=== PATIENT | female | born 1995 | race Caucasian/White ===

== ENCOUNTER 2017-05-22 19:07 | Observation (INO) | payer OTHER ==
[~2017-05-22] VITALS: Ht 170.2 cm; Wt 114.3 kg
[~2017-05-22 19:07] MED LIST: ANUSOL-HC21 GM PR; ATARAX10 MG PO; EPIPEN ADU0.3 MG/0.3 IM; LIBRAX, CLI1 CAPSULE PO; MIRALAX17 GM PO; NORCO 5/3251 TABLET PO; TRAMADOL HCL50 MG PO; TRI-SPRINTEC1 EACH PO; TUCKS1 EAC1 TP
[2017-05-22 20:28] LABS: HEMATOCRIT 38.1 % (36.0-46.0); HEMOGLOBIN 12.9 G/DL (11.9-15.5); MCH 29.6 PG (29.0-34.0); MCHC 33.9 G/DL (30.0-36.0); MCV 87.4 FL (83-99); PLATELET COUNT 233 K/uL (156-360); RBC DIS.WIDTH-SD 38.9 % (39-53); RED BLOOD COUNT 4.36 M/uL (3.80-5.20); WHITE BLOOD COUNT 11.1 K/uL (4.1-10.2)
[2017-05-22 20:34] LABS: CHLORIDE 106 mEq/L (99-109); POTASSIUM 4.2 mEq/L (3.7-5.4); SODIUM 139 mEq/L (136-147)
[2017-05-22 20:36] LABS: GLUCOSE 110 mg/dL (70-99)
[2017-05-22 20:40] LABS: CREATININE 0.9 mg/dL (0.6-1.3); GFR ESTIMATE (CALCULATED) > 59 mL/min/
[2017-05-22 20:41] LABS: UREA NITROGEN (BUN) 18 mg/dL (9-23)
[2017-05-22 20:48] LABS: QUANTITATIVE HCG < 4.0 MIU/ML; TROP-I INTERPRETATION NEGATIVE; TROPONIN-I < 0.01 ng/mL (0.0-0.30)
[2017-05-22 22:31] LABS: PTT 25.7 SEC (25-37)
[2017-05-22] MEDS ORDERED: BACTRIM,SEPT1 TABLET PO (22:31)
[2017-05-22] MEDS ORDERED: ENDOCET 5-3251 EACH PO (22:32)
[2017-05-22] MEDS ORDERED: INDOMETHACIN25 MG PO (22:32)
[2017-05-22] MEDS ORDERED: DIAZEPAM5 MG PO (22:32)
[2017-05-22] MEDS ORDERED: ONDANSETRON HCL4 MG PO (22:33)
[2017-05-22] MEDS ORDERED: BENTYL10 MG PO (22:36)
[2017-05-22] MEDS ORDERED: MAPAP PO (22:37)
[2017-05-22] MEDS ORDERED: TYLENOL PM EX-1 EACH PO (22:38)
[2017-05-23 00:51] VITALS: BP 133/76
[2017-05-23 03:33] VITALS: BP 135/80
[2017-05-23 07:26] VITALS: BP 115/72
[2017-05-23 07:30] LABS: HEMATOCRIT 34.8 % (36.0-46.0); HEMOGLOBIN 11.3 G/DL (11.9-15.5); MCH 28.5 PG (29.0-34.0); MCHC 32.5 G/DL (30.0-36.0); MCV 87.9 FL (83-99); PLATELET COUNT 189 K/uL (156-360); RBC DIS.WIDTH-CV 12.3 % (11.8-14.6); RBC DIS.WIDTH-SD 39.6 % (39-53); RED BLOOD COUNT 3.96 M/uL (3.80-5.20); WHITE BLOOD COUNT 8.5 K/uL (4.1-10.2)
[2017-05-23 07:52] LABS: CHLORIDE 106 MEQ/L (99-109); CREATININE 0.9 MG/DL (0.6-1.3); GFR ESTIMATE (CALCULATED) > 59 mL/min/; GLUCOSE 100 mg/dL (70-99); POTASSIUM 4.2 MEQ/L (3.7-5.4); SODIUM 137 MEQ/L (136-147); UREA NITROGEN (BUN) 15 mg/dL (9-23)
[2017-05-23] MEDS ORDERED: XARELTO20 MG PO (11:17)
[2017-05-23] MEDS ORDERED: XARELTO15 MG PO (11:17)
[2017-05-23 11:19] VITALS: BP 131/83
[2017-05-23] MEDS ORDERED: TRAMADOL HCL50 MG PO (12:43)
== END 2017-05-23 14:57 | disposition home or self-care (01) ==
LOC: EME 19:07 → 2EAST 22:40 → EDOF 22:40 → ENRESERV 22:44 → EDOF 05-23 00:47 → 2EAST 05-23 00:48
PROVIDERS: Hospitalist; Physician Assistant
DX: I26.99 Other pulmonary embolism without acute cor pulmonale (principal); Z98.890 Other specified postprocedural states; Z79.3 Long term (current) use of hormonal contraceptives; K58.9 Irritable bowel syndrome, unspecified
CPT/HCPCS: 71046; 71275; 80048; 84484; 84702; 85027; 85610; 85730; 93005; 93970; 99281; 99284; G0378; J7030